=== PATIENT | male | born 1980 | race Caucasian/White ===

== ENCOUNTER 2023-11-23 23:10 | Emergency (ER) | payer MEDICAID ==
[~2023-11-23] VITALS: Ht 175.3 cm; Wt 101.3 kg
[2023-11-23 23:18] VITALS: TEMP 98.5; O2SAT 99
[2023-11-24 01:05] LABS: BASOPHILS % 0.9 % (0.0-2.0); EOSINOPHILS % 4.1 % (0.0-5.0); HEMATOCRIT. 42.4 % (42.0-52.0); HEMOGLOBIN. 14.8 g/dL (14.0-18.0); LYMPHOCYTES % 47.4 % (20.0-50.0); MEAN CORPUSCULAR HEMOGLOBIN 30.5 pg (28.0-32.0); MEAN CORPUSCULAR HGB CONC 34.9 g/dL (31.0-37.0); MEAN CORPUSCULAR VOLUME 87.4 fL (80.0-94.0); MEAN PLATELET VOLUME 8.4 fl (7.4-10.4); MONOCYTES % 8.4 % (2.0-8.0); NEUTROPHILS % 39.2 % (40.0-76.0); PLATELET 216 x1000/uL (130-400); RED BLOOD CELL COUNT 4.85 mill/uL (4.7-6.1); RED CELL DISTRIBUTION WIDTH 13.4 % (11.6-14.6); WHITE BLOOD COUNT 7.2 x1000/uL (4.5-11.0)
[2023-11-24 01:09] LABS: CHLORIDE 104 mEq/L (98-107); POTASSIUM 3.2 mEq/L (3.5-5.1); SODIUM 138 mEq/L (136-145)
[2023-11-24 01:10] LABS: CARBON DIOXIDE 28 mEq/L (21-32)
[2023-11-24 01:15] LABS: CREATININE 1.1 mg/dL (0.6-1.3); GLUCOSE 84 mg/dL (70-105); UREA NITROGEN BLOOD 21 mg/dL (9-23)
[2023-11-24] MEDS: ONDANSETRON 4MG/5ML UDC PO ONE (01:15)
[2023-11-24 01:17] LABS: ALANINE AMINOTRANSFERASE 32 IU/L (10-49); ALBUMIN 4.6 g/dL (3.2-4.8); ASPARTATE AMINOTRANSFERASE 29 IU/L (<34); BILIRUBIN DIRECT 0.3 mg/dL (<=3.0)
[2023-11-24 01:18] LABS: BILIRUBIN TOTAL 1.1 mg/dL (0.1-1.0); PROTEIN TOTAL 7.3 g/dL (6.0-8.3)
[2023-11-24] MEDS ORDERED: OMEP20CA14 MT (01:29)
[2023-11-24 02:38] VITALS: BP 142/91; PULSE 59; RESP 18; O2SAT 100
== END 2023-11-24 02:41 | disposition home or self-care (01) ==
LOC: ER 23:47
DX: R10.9 Unspecified abdominal pain (principal); R11.0 Nausea
CPT/HCPCS: 36415; 80048; 80076; 85025; 99283

== ENCOUNTER 2024-04-21 16:26 | Emergency (ER) | payer MEDICAID ==
[~2024-04-21] VITALS: Ht 175.3 cm; Wt 97.0 kg
[~2024-04-21 16:26] MED LIST: OMEP20CA14 MT
[2024-04-21 17:01] VITALS: O2SAT 99
[2024-04-21 17:04] LABS: BASOPHILS % 0.3 % (0.0-2.0); HEMATOCRIT. 43.9 % (42.0-52.0); HEMOGLOBIN. 14.9 g/dL (14.0-18.0); LYMPHOCYTES % 9.7 % (20.0-50.0); MEAN CORPUSCULAR HGB CONC 33.9 g/dL (31.0-37.0); MEAN CORPUSCULAR VOLUME 88.6 fL (80.0-94.0); MEAN PLATELET VOLUME 8.5 fl (7.4-10.4); PLATELET 222 x1000/uL (130-400); RED BLOOD CELL COUNT 4.95 mill/uL (4.7-6.1); RED CELL DISTRIBUTION WIDTH 13.8 % (11.6-14.6); WHITE BLOOD COUNT 11.2 x1000/uL (4.5-11.0)
[2024-04-21 17:09] LABS: POTASSIUM 4.4 mEq/L (3.5-5.1)
[2024-04-21 17:11] LABS: CALCIUM 9.6 mg/dL (8.7-10.4)
[2024-04-21 17:18] LABS: CREATININE 1.6 mg/dL (0.6-1.3)
[2024-04-21 20:04] LABS: CLARITY URINE CLEAR (CLEAR); COLOR URINE YELLOW (YELLOW); GLUCOSE URINE NEGATIVE (NEGATIVE); KETONES URINE NEGATIVE (NEGATIVE); LEUKOCYTE ESTERASE URINE NEGATIVE (NEGATIVE); NITRITE URINE NEGATIVE (NEGATIVE); OCCULT BLOOD URINE 1+ (NEGATIVE); PH URINE 5.5 (4.5-8.0); PROTEIN URINE NEGATIVE (NEGATIVE); SPECIFIC GRAVITY URINE 1.013 (1.005-1.030); UROBILINOGEN URINE 0.2 E.U./dL (0.2-1.0)
[2024-04-21] MEDS: SODIUM CHLORIDE 0.9% 1,000 ML IV ONE (20:37)
[2024-04-21] MEDS: KETOROLAC 30MG/ML VIAL IV ONE (20:37)
[2024-04-21] MEDS: ONDANSETRON HCL 4MG/2ML INJ IV ONE (20:37)
[2024-04-21 20:55] LABS: BACTERIA URINE TRACE; SQUAMOUS EPITHELIAL CELL URINE FEW /lpf (RARE/1+); URIC ACID CRYSTALS URINE 1+ /lpf; WBC URINE 0-2 /hpf (0-2)
[2024-04-21] MEDS ORDERED: TAMS-11 MT (21:24)
[2024-04-21] MEDS ORDERED: IBUP-2029 MT (21:24)
[2024-04-21] MEDS ORDERED: ONDA-239 PO (21:24)
[2024-04-21 22:45] VITALS: BP 124/84; PULSE 78; RESP 18; TEMP 36.7; O2SAT 99
== END 2024-04-21 23:25 | disposition home or self-care (01) ==
LOC: ER 16:26
DX: N20.0 Calculus of kidney (principal); N17.9 Acute kidney failure, unspecified; Z79.899 Other long term (current) drug therapy
CPT/HCPCS: 80048; 81003; 85025; 36415; 76770; 96361; 96374; 96375; 99285; J1885; J2405; J7030; Z7610